=== PATIENT | male | born 1970 | race Caucasian/White ===

== ENCOUNTER 2020-04-25 18:41 | Observation (INO) | payer SELFPAY ==
[~2020-04-25] VITALS: Ht 182.9 cm; Wt 104.5 kg
--- NOTE | ~2020-04-25 | HEMODYNAMI ---
PATIENT:TERRI OSORIO MEDICAL RECORD: [id number] : 66 [facility]# [id number] ADMISSION DATE: 04/25/20 Generatedon:04/26/202011:17 Patient name: TERRI OSORIO Patient #: [id number] SSN: [id number] : 1970 Date of study: 04/26/2020 Page: Of Hemodynamic Procedure Report Patient Data Patient Demographics Procedure consent was obtained First Name: TERRI Gender: Male Last Name: JO : 1970 Middle Initial: M Age: 49 year(s) Patient #: [id number] Race: SSN: [id number] Additional ID: [id number] Contact details [address]: [address] [place] [address] State: [place] City: [place] Zip code: [address] Past Medical History Allergies Allergen Reaction Date Comments Reported Other allergy 04/26/2020 PCN, TETRACYCLINES, KEFLEX, ERYTHROCIN Admission Admission Data Admission Date: 04/25/2020 Admission Time: 19:35 Arrival Date: 04/26/2020 Arrival Time: 0:00 Admit Source: Other Insurance Payor: None Room #: D.2117 [facility] #: [id number] Height (in.): 72 BSA: 2.26 (m2) Height (cm.): 182.88 BMI: 31.19 (kg/m2) Weight (lbs.): 230 Weight (kg.): 104.33 Lab Results Lab Result Date: 04/26/2020 Lab Result Time: 0:00 Biochemistry Name Units Result Min Max BUN mg/dl 15 --(--*-)-- 7 18 Creatinine mg/dl 1.2 --(---*)-- 0.6 1.3 eGFR ml/min 67.69138 *-(----)-- 90 120 NONAFRICAN CBC Name Units Result Min Max Hematocrit % 45.2 --(-*--)-- 42 54 Hemoglobin g/dl 15.5 --(-*--)-- 13.5 17.5 Procedure Procedure Types Cath Procedure Diagnostic Procedure [facility] w/Coronaries Procedure Description Procedure Date Procedure Date: 04/26/2020 Procedure Start Time: 11:08 Procedure End Time: 11:15 Procedure Staff Name Function Jarrett Quezada MD Performing Physician Bridget Ortega RT Monitor Patricia Toro RT Scrub Elieen Gómez RN Nurse Alejandra Joseph RN Monitor Procedure Data Cath Procedure Fluoroscopy Diagnostic fluoroscopy Total fluoroscopy Time: 0.7 time: 0.7 min min Diagnostic fluoroscopy Total fluoroscopy dose: 336 dose: 336 mGy mGy Contrast Material Contrast Material Type Amount (ml) Isovue 370 33 Entry Location Entry Primary Successful Side Size Upsize Upsize Entry Closure Khan ccessful Closure Location (Fr) 1 (Fr) 2 (Fr) Remarks Device Remarks Radial Right 6 Fr Manual artery Short Compression Estimated blood loss: 5 ml Diagnostic catheters Device Type Used For End Catheter Placement DIAGNOSTIC [place] 110cm 5 Procedure Fr catheter ([id number]) Procedure Complications No complications Procedure Medications Medication Administration Route Dosage Radial Cocktail added to field 1 syringe (Verapamil 2mg/Nitro 400mcg/Heparin 1500units) 0.9% NaCl I.V. 100 ml/hr Oxygen NC 2 l/min Heparin Flush Bag added to field 2 bags (1000units/500ml NS) Versed I.V. 2 mg Fentanyl I.V. 100 mcg Versed I.V. 0.5 mg Hemodynamics Rest BSA: 2.26 (m2) HGB: 15.5 (g/dl) O2 Consumption: Estimated: 263.74 (ml/min) O2 Co nsumption indexed: Estimated:116.7 (ml/min/m) Heart Rate: 63 (bpm) Pressure Samples Time Site Value (mmHg) Purpose Heart Use Rate(bpm) 11:09 AO 116/16(30) Snapshot 64 11:09 LV 120/12,15 Snapshot 62 Snapshots Pre Cath Intra NCS Post Cath Vital Signs Time Heart Resp SPO2 etCO2 NIBP (mmHg) Rhythm Pain Sedation Rate (ipm) (%) (mmHg) Status Level (bpm) 10:35:31 56 117 98 36.1 174/98(150) NSR 0 (11) 10(A) , No pain 10:40:08 56 9 94 30.8 157/92(133) NSR 0 (11) 10(A) , No pain 10:44:46 60 19 96 36.1 155/84(111) NSR 0 (11) 10(A) , No pain 10:49:21 59 20 96 33.8 142/88(115) NSR 0 (11) 10(A) , No pain 10:53:49 60 19 96 34.6 148/95(125) NSR 0 (11) 10(A) , No pain 10:58:16 57 16 96 36.8 152/94(115) NSR 0 (11) 10(A) , No pain 11:02:52 57 17 95 36.8 151/83(115) NSR 0 (11) 10(A) , No pain 11:07:24 61 19 98 35.3 158/92(121) NSR 0 (11) 9(A) , No pain 11:11:59 66 21 93 32.3 152/91(111) NSR 0 (11) 9(A) , No pain Medications Time Medication Route Dose Verified Delivered Reason Notes Eff ectiveness by by 10:45:13 Radial Cocktail added 1 Jarrett Eileen used for (Verapamil to syringe Damien Rico procedure 2mg/Nitro field MD AVILA 400mcg/Heparin 1500units) 10:45:25 0.9% NaCl I.V. 100 Jarrett Eileen used for ml/hr Damien Rico procedure MD AVILA 10:45:34 Oxygen NC 2 l/min Jarrett Eileen for low Damien Rico 02 sats MD AVILA 10:45:44 Heparin Flush added 2 bags Jarrett Eileen used for Bag to Damien Rico procedure (1000units/500ml field ELIZABETH RN NS) 11:07:38 Versed I.V. 2 mg Jarrett Eileen for Damien Rico sedation MD AVILA 11:07:52 Fentanyl I.V. 100 mcg Jarrett Eileen for Damien Rico sedation MD AVILA 11:10:44 Versed I.V. 0.5 mg Jarrett Eileen for Damien Rico sedation MD AVILAforestry technical officer Log Time Note 9:41:54 Informed consent obtained and on chart 9:58:02 Lab Result : Hemoglobin 15.5 g/dl 9:58:02 Lab Result : eGFR NONAFRICAN 67.11874 ml/min 9:58:02 Lab Result : BUN 15 mg/dl 9:58:02 Lab Result : Creatinine 1.2 mg/dl 9:58:02 Lab Result : Hematocrit 45.2 % 9:58:05 Arrival Date: 04/26/2020 12:00:00 AM 9:58:05 Admit Source: Other 9:58:18 Patient Height : 72 inches 9:58:24 Patient Weight : 230 lbs 9:58:58 Insurance Payor : None 10:21:43 Procedure Status Elective Heart Cath (OP). 10:21:44 Time tracking: Regular hours (M-F 7:00 - 5:00) 10:21:46 Plan of Care:Hemodynamics will remain stable., Cardiac rhythm will remain stable., Comfort level will be maintained., Respiratory function will remain adequate., Patient/ family verbilizes understanding of procedure., Procedure tolerated without complication., Recovers from procedure without complications.. 10:21:48 Alejandra Joseph RN sent for patient. Start room use. 10:21:52 H&P Date Dictated: 04/26/2020 ER History on chart.. 10:26:09 Patient allergic to Other allergyPCN, TETRACYCLINES, KEFLEX, ERYTHROCIN 10:28:25 Patient received from Med II to CCL 1 Alert and oriented. Tansferred to table in Supine position. 10:28:26 Warm blankets applied, and samantha hugger turned on for patient comfort. 10:28:26 Correct patient and procedure confirmed by team. 10:28:26 ECG and BP/O2 sat monitors applied to patient. 10:33:55 Vital chart was started 10:33:56 Baseline sample Acquired. 10:33:59 Rhythm: sinus rhythm 10:34:01 Full Disclosure recording started 10:34:01 Pre-procedure instructions explained to patient. 10:34:01 Pre-op teaching completed and patient verbalized understanding. 10:34:03 Family in patients room. 10:34:04 Patient NPO since Midnight. 10:35:46 Is the patient allergic to Iodine/contrast media? No. 10:35:48 Is patient on blood thinner?No 10:35:58 Patient diabetic? No. 10:36:07 Previous problem with sedation/anesthesia? No ? 10:36:08 Snore? Yes 10:36:10 Sleep apnea? No 10:36:12 Deviated septum? No 10:36:14 Opens mouth fully? Yes 10:36:15 Sticks out tongue? Yes 10:36:17 Airway obstruction? No ? 10:36:18 Dentures? No ? 10:36:22 Pre procedure: right dorsailis pedis pulse 1+ Palpable, but thready & weak; easily obliterated 10:36:24 Modified Chad's test Ulnar < 7 seconds 10:36:26 Patient pain scale 0/10 ?. 10:36:30 IV patent on arrival in left hand with 0.9% NaCl at [facility]. 10:36:33 Lab results completed and on chart. 10:36:36 Right Radial & Right Groin area was prepped with chlora-prep and draped in sterile fashion 10:36:37 Alarms reviewed by R. N. 10:36:37 Sharps counted by scrub and verified by R.N. 10:36:41 Use device set Radial Dx or PCI 10:36:42 ACIST Syringe (01538) opened to sterile field. 10:36:44 Bag Decanter (2002S) opened to sterile field. 10:36:44 ACIST Hand Control (16331) opened to sterile field. 10:36:45 ACIST Manifold (09684) opened to sterile field. 10:36:45 Tegaderm 4 x 4 (1626W) opened to sterile field. 10:36:46 Medline Cath Pack ([id number]) opened to sterile field. 10:36:47 MBrace Wrist Support (602737052) opened to sterile field. 10:36:49 EMERALD Guide Wire (516-755) opened to sterile field. 10:36:51 SHEATH 6FR RAIN (7228697) opened to sterile field. 10:45:13 Radial Cocktail (Verapamil 2mg/Nitro 400mcg/Heparin 1500units) 1 syringe added to field was administered by Eileen Gómez RN; used for procedure; Verbal order read back and verified. 10:45:25 0.9% NaCl 100 ml/hr I.V. was administered by Eileen Gómez RN; used for procedure; Verbal order read back and verified. 10:45:34 Oxygen 2 l/min NC was administered by Eileen Gómez RN; for low 02 sats; Verbal order read back and verified. 10:45:44 Heparin Flush Bag (1000units/500ml NS) 2 bags added to field was administered by Eileen Gómez RN; used for procedure; Verbal order read back and verified. 10:51:46 Risk of Mortality: 0.1 10:51:48 Risk of blood transfusion: 0.1 10:51:51 Risk of KEENA: 0.6 11:07:38 Versed 2 mg I.V. was administered by Eileen Gómez RN; for sedation; Verbal order read back and verified. 11:07:39 --------ALL STOP TIME OUT------ 11:07:40 Final Timeout: patient, procedure, and site verified with staff and physician. All members of the team are in agreement. 11:07:42 Right Radial & Right Groin site verified by team. 11:07:46 Fire Safety Assessment: A--An alcohol-based skin anteseptic being used preoperatively., C--Open oxygen or nitrous oxide is being used., D--An ESU, laser, or fiber-optic light is being used. 11:07:50 Physical assessment completed. ASA score P 2 - A patient with mild systemic disease as per Jarrett Quezada MD. 11:07:52 Fentanyl 100 mcg I.V. was administered by Eileen Gómez RN; for sedation; Verbal order read back and verified. 11:07:53 1) 90+ Normal kidney functon but urine findings or structural abnormalities or genetic trait point to kidney disease. , 2) 60-89 Mildly reduced kidney function, and other findings (as for stage 1) point to kidney disease. 11:08:07 Maximum allowable contrast dose (3.7 X eGFR X 0.75)188 ml. 11:08:10 Sedation plan: IV Moderate Sedation Medication:Versed, Fentanyl 11:08:17 Procedure started. 11:08:31 Local anesthetic to right radial artery with Lidocaine 2% by Jarrett Quezada MD.INITIAL ACCESS ONLY 11:08:44 A 6 Fr Short sheath was inserted into the Right Radial artery 11::31 A DIAGNOSTIC [place] 110cm 5 Fr catheter ([id number]) was advanced over the wire and used for Procedure. 11:09:33 LV gram done using CASTREJON 11:09:45 EF : 55 % 11:09:46 LV hemodynamics recorded. 11:09:53 Injector settings: Ml/sec: 10, Volume: 20, 11:09:57 LCA angiography performed. 11:10:30 RCA angiography performed. 11:10:38 ACCDominant side:Right 11:10:44 Versed 0.5 mg I.V. was administered by Eileen Gómez RN; for sedation; Verbal order read back and verified. 11:10:49 Catheter removed. 11:11:16 ZEPHYR REGULAR TR BAND (534068) opened to sterile field. 11:11:32 Sheath removed intact; hemostasis achieved with Manual Compression to the Right Radial artery. 11:11:38 Procedure ended.(Physican Out) 11:12:30 Fluoroscopy time 00.70 minutes. 11:12:35 Fluoroscopy dose: 336 mGy 11:12:59 Flurop Dose total: 336 11:13:03 Dose Area Product 95991 mGy/cm. 11:13:13 Contrast amount:Isovue 370 33ml. 11:13:15 Maximum allowable dose exceeded? No. 11:13:17 Sharps counted by scrub and verified by R.N. 11:13:20 [place] band inflated with 10cc of air. 11:13:22 Insertion/operative site no bleeding no hematoma. 11:13:32 Post right radial artery:stable, soft, clean and dry 11:13:35 Post Procedure Pulses reassessed and unchanged 11:13:38 Post procedure: right radial pulse 1+ Palpable, but thready & weak; easily obliterated. 11:13:41 Post-procedure physical assessment completed. ASA score P 2 - A patient with mild systemic disease as per Jarrett Quezada MD. 11:13:43 Post procedure rhythm: unchanged. 11:13:46 Estimated blood loss: 5 ml 11:13:47 Post procedure instruction explained to patient.Patient verbalizes understanding. 11:13:47 Patient needs reinforcement of post procedure teaching. 11:14:57 Procedure and supply charges have been captured, reviewed, submitted and are correct. 11:15:01 Procedure Complication : No complications 11:15:10 Vital chart was stopped 11:15:11 [facility] Findings: mild to moderate CAD (<70%) 11:15:13 Operative report dictated upon procedure completion. 11:15:14 See physician's report for complete and final results. 11:15:17 Report given to Med II. 11:15:21 Patient transfered to Med II with Bed. 11:15:29 Procedure ended. 11:15:29 Full Disclosure recording stopped 11:15:42 End room use (Document Last) 11:16:10 End room use (Document Last) 11:16:38 End room use (Document Last) Device Usage Item Name Manufacture Quantity Catalog Hospital Part Current Minima l Lot# / Number Charge Number Stock Stock Serial# Code ACIST Acist 1 63859 395979 655860 161196 20 Syringe Medical (47240) Systems Inc Bag Microtek 1 683411 03492 347195 5 Decanter Medical Inc. () ACIST Hand Acist 1 03797 794742 866916 493150 5 Control Medical (19143) Systems Inc ACIST Acist 1 59686 693708 419496 376921 5 Manifold Medical (47192) Systems Inc Tegaderm 4 3M 1 1626W 406430 227786 350958 5 x 4 (1626W) Medline Medline 1 [id number] 53806 257317 5 Cath Pack ([id number]) MBrace Advanced 1 140-0250-00 992377 71531 438239 5 Wrist Vascular Support Dynamics (149757375) EMERALD Cardinal 1 502-455 765750 272526 001295 5 Guide Wire Health (502-455) SHEATH 6FR Cardinal 1 0893903 051210 6774457 082040 5 [facility] (7563380) DIAGNOSTIC Terumo 1 40-5013 792160 016827 621530 5 [place] 110cm 5 Fr catheter (220011) ZEPHYR Cardinal 1 561884 239518 2029642 787567 5 REGULAR TR Health BAND (215539) Signature Audit [place] Stage Time Signature Unsigned Intra-Procedure 04/26/2020 Alejandra Joseph 11:16:10 AM RN Intra-Procedure 04/26/2020 Eileen 11:16:39 AM Rico RN Intra-Procedure 04/26/2020 Jarrett Zapata 11:17:20 AM Kevin [facility] [address] [place] [address]
[2020-04-25] MEDS ORDERED: FLUTICASONE PRO16 GM NASAL (18:57)
[2020-04-25] MEDS ORDERED: CLARITIN 10 MG10 MG PO (18:57)
[2020-04-25 19:07] VITALS: BP 166/96
[2020-04-25 19:17] LABS: BASOPHILS 0.4 % (0-2); EOSINOPHILS 3.4 % (0-7); HEMATOCRIT 45.2 % (42.0-54.0); HEMOGLOBIN 15.5 g/dL (13.5-17.5); IMMATURE GRANULOCYTES 0.7 % (0-5); LYMPHOCYTES 26.4 % (15-50); MCH 30.5 pg (26.0-34.0); MCHC 34.3 g/dL (31.0-37.0); MCV 88.8 fL (80.0-100.0); MEAN PLATELET VOLUME 10.6 fL (7.4-10.4); MONOCYTES 8.1 % (2-11); PLATELET COUNT 223 10x3/uL (130-400); RBC 5.09 10x6/uL (4.20-6.10); RDW 12.3 % (11.5-14.5)
[2020-04-25 19:28] LABS: APTT 31.3 SECONDS (22.8-39.4); CALC OSMOLALITY 282 mosm/kg (275-300); CALCIUM 8.9 mg/dL (8.5-10.1); CARBON DIOXIDE 28.5 mmol/L (21.0-32.0); CHLORIDE - SERUM 107 mmol/L (98-107); CREATININE - SERUM 1.4 mg/dL (0.6-1.3); GLUCOSE 117 mg/dL (74-106); INR 1.09 (0.85-1.17); POTASSIUM - SERUM 4.1 mmol/L (3.5-5.1); SODIUM 141 mmol/L (136-145); UREA NITROGEN 15 mg/dL (7-18); eGFR NON AFRICAN AMERICAN 57 mL/min (90-120)
[2020-04-25 19:46] LABS: ALBUMIN 3.7 g/dL (3.4-5.0); ALKALINE PHOSPHATASE 89 U/L (30-120); ALT (SGPT) 42 U/L (10-68); BILIRUBIN - TOTAL 0.39 mg/dL (0.2-1.3); CREATINE KINASE 104 UL (21-232); MAGNESIUM - SERUM 1.9 mg/dL (1.8-2.4); PROTEIN - SERUM 7.1 g/dL (6.4-8.2); TROPONIN-I < 0.017 ng/mL (0.000-0.060)
[2020-04-25 20:50] VITALS: Ht 182.9 cm; Wt 104.5 kg
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
[2020-04-25 21:03] VITALS: BP 128/80
[2020-04-26 01:40] VITALS: BP 151/58
--- NOTE | 2020-04-26 05:55 | NUR ---
PT HAS RESTED THROUGH THE NIGHT. SR PER TELEMETRY. NO REPORTS OF PAIN OR DISCOMFORT. CPOC.
[2020-04-26 06:26] LABS: ANION GAP 11.3 mmol/L (8-16); CALCIUM 8.5 mg/dL (8.5-10.1); CREATININE - SERUM 1.2 mg/dL (0.6-1.3); POTASSIUM - SERUM 4.3 mmol/L (3.5-5.1); TROPONIN-I 0.028 ng/mL (0.000-0.060)
[2020-04-26 07:06] VITALS: BP 131/77
[2020-04-26 07:46] LABS: CHOL - HDL RATIO 3.6 ratio (2.3-4.9); LDL-HDL RATIO 2.1 ratio (1.5-3.5)
[2020-04-26 08:00] VITALS: BP 132/87
[2020-04-26 09:43] LABS: ALT (SGPT) 39 U/L (10-68)
[2020-04-26 10:06] LABS: BASOPHILS 0.9 % (0-2); EOSINOPHILS 4.3 % (0-7); HEMATOCRIT 42.4 % (42.0-54.0); HEMOGLOBIN 14.1 g/dL (13.5-17.5); LYMPHOCYTES 26.2 % (15-50); MCH 30.3 pg (26.0-34.0); MCHC 33.3 g/dL (31.0-37.0); MEAN PLATELET VOLUME 11.4 fL (7.4-10.4); MONOCYTES 11.3 % (2-11); NEUTROPHILS 56.3 % (40-80); PLATELET COUNT 222 10x3/uL (130-400); RBC 4.65 10x6/uL (4.20-6.10); RDW 12.6 % (11.5-14.5); WBC 6.9 10x3/uL (4.8-10.8)
[2020-04-26 10:08] LABS: MCV 91.2 fL (80.0-100.0)
--- NOTE | 2020-04-26 10:26 | NUR ---
PT TO OPERATING ROOM SCHEDULER.
[2020-04-26 11:00] VITALS: BP 144/94
--- NOTE | 2020-04-26 11:52 | NUR ---
RECEIVED PT BACK TO ROOM 2116. PT A/O X4, VITAL SIGNS STABLE, PLACED PT ON FREQUENT VITAL SIGNS. Z BAND TO RT WRIST, NO BLEEDING OR HEMATOMA NOTED.
--- NOTE | 2020-04-26 12:27 | NUR ---
NO CHANGES TO RT WRIST FROM PREVIOUS ASSESSMENT.
--- NOTE | 2020-04-26 13:35 | NUR ---
ATTEMPTED TO REMOVED 5CC OF AIR AND SITE STARTED BLEEDING. AIR PUT BACK IN. WILL TRY AGAIN IN 30MIN.
--- NOTE | 2020-04-26 14:03 | NUR ---
REMOVED 5CC OUT OF Z BAND, NO ACTIVE BLEEDING OR HEMATOMA AT THIS TIME.
[2020-04-26 15:00] VITALS: BP 138/81
--- NOTE | 2020-04-26 15:06 | NUR ---
Z BAND REMOVED AND 2X2, BAND AID PLACED ON WRIST. NO BLEEDING OR HEMATOMA NOTED.
[2020-04-26] MEDS ORDERED: METOPROLOL TART50 MG PO (16:52)
--- NOTE | 2020-04-26 17:46 | NUR ---
PROVIDED VERBAL AND WRITTEN DISCHARGE TEACHING TO PT WHO VERBALIZED UNDERSTANDING REGARDING TEACHING. D/C LT FA IV WITH CATHETER TIP INTACT. HEART MONITOR REMOVED AND TAKEN TO RECEIVING TELLER. PT LEFT UNIT VIA WHEELCHAIR, WITH ALL BELONGINGS, NAD NOTED.
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
--- NOTE | 2020-04-27 13:36 | OP ---
PATIENT NAME: TERRI OSORIO MEDICAL RECORD: [id number] :66 LOCATION:D.M2 D.2117 ADMISSION DATE:04/25/20 SURGEON: GURDEEP HUMPHREY MD DATE OF OPERATION: 04/26/2020 PROCEDURE: Left heart catheterization, selective angiography, right radial approach. CATHETERS: Radial sheath and [place] catheter. The procedure was well tolerated. The patient returned to the booker, sheath removed. TR band was placed. FINDINGS: Left ventriculography in 30-degree CASTREJON view: Normal wall motion and normal systolic function. CORONARY ANATOMY: LEFT MAIN: Left main is free of disease. LAD: Free of disease in the diagonal system. CIRCUMFLEX: Free of disease in the marginal system. RIGHT CORONARY ARTERY: Dominant artery, gives rise to PDA, free of disease. IMPRESSION: Normal LV systolic function. Normal coronary anatomy. TRANSINT:[id number] Voice Confirmation ID: [id number] DOCUMENT ID: [id number] GURDEEP HUMPHREY MD at 1336 CC: [id number] DICTATION DATE: 04/26/20 111 GAS APPLIANCE INSTALLER: 04/26/20 2139 DIS IN 04/26/20 [facility] [address] [place] [address]
--- NOTE | 2020-04-27 13:36 | CN ---
PATIENT NAME:TERRI OSORIO MEDICAL RECORD: [id number] : 66 LOCATION:D. D.2117 ADMIT DATE: 04/25/20 ACCOUNT: [id number] CONSULTING PHYSICIAN: GURDEEP HUMPHREY MD REFERRING PHYSICIAN: KAMI GUAJARDO MD DATE OF CONSULTATION: 04/26/2020 HISTORY OF PRESENT ILLNESS: A 49-year-old gentleman with a strong family history of coronary artery disease, history of dyslipidemia, has a longstanding history of SVT. No further cardiac workup. Just typically has short episode and has had a severe episode yesterday, accompanied by shortness of breath, anginal symptomology, radiation to the jaw and teeth as well as nausea, lasted about 20 minutes, converted in the ER. We were asked to see him concerning his cardiovascular status. PAST MEDICAL HISTORY: Includes history of SVT. ALLERGIES: PENICILLIN, TETRACYCLINE, KEFLEX. SOCIAL HISTORY: Works fulltime, nonsmoker. Easily takes care of all his ADLs. REVIEW OF SYSTEMS: The patient reports easy bruising but reports no swollen glands. The patient reports no fever, no night sweats, no significant weight gain, no significant weight loss. No significant exercise tolerance. The patient reports no dry eyes, no irritation, no vision change. Patient reports no difficulty hearing and no ear pain. Patient reports no frequent nose bleeds or nose and sinus problems. Patient reports on arm pain on exertion. No shortness of breath while lying down. No history of heart murmur. Patient reports no cough, no wheezing or coughing up blood. Patient reports no abdominal pain, no vomiting. Normal appetite. No diarrhea and not vomiting blood. No nausea and no constipation. Patient reports no incontinence. No difficulty urinating. No hematuria. No increased frequency. Patient reports no muscle aches. No weakness, no arthralgias, no back pain. No swelling of the extremities. Patient reports no abnormal mole, no jaundice, no rashes. Reports no loss of consciousness. No weakness and no numbness. No seizures, dizziness, or headaches. The patient reports no depression, no sleep disturbance, feeling safe in a relationship and no alcohol abuse. Patient reports on fatigue. Reports no runny nose or sinus pressure. No itching, no hives, and no frequent sneezing. PHYSICAL EXAMINATION: GENERAL: No acute distress, appears stated age. VITAL SIGNS: Blood pressure 131/77, pulse 64 and regular. HEENT: Normocephalic, atraumatic. NECK: No bruits noted. HEART: Regular. II/ systolic ejection murmur. LUNGS: Good air excursion. ABDOMEN: Soft, nontender. EXTREMITIES: Pulses 2+. No edema. DIAGNOSTIC DATA: EKG shows inferolateral ST-T changes. IMPRESSION: Acute coronary syndrome with SVT, multiple risk factors for coronary artery disease. CONSULT REPORT [id number] TERRI OSORIO PLAN: For angiography, intervention based on above. TRANSINT:[id number] Voice Confirmation ID: [id number] DOCUMENT ID: [id number] GURDEEP HUMPHREY MD at 1336 CC: [id number] DICTATION DATE: 04/26/20907 MILL MANAGER: 04/26/20 182 DIS IN 04/26/20 [address] [place] [address]
--- NOTE | 2020-04-27 13:36 | EC ---
PATIENT:TERRI OSORIO DATE OF SERVICE: 04/25/20 SEX: M MEDICAL RECORD: [id number] DATE OF : [birth year] LOCATION:D.M2 D.211 AGE OF PATIENT: 49 ADMISSION DATE: 04/25/20 REFERRING PHYSICIAN: INTERPRETING PHYSICIAN: GURDEEP HUMPHREY MD ECHOCARDIOGRAM REPORT ECHO CHARGES 4 ECHO COMPLETE Date: 04/26/20 CLINICAL DIAGNOSIS: EXERTIONAL DYSPNEA, EPISODE OF SVT ECHOCARDIOGRAPHIC MEASUREMENTS (adult normal given) AC root (d.<3.7cm) 3.2 cm LV Septum d (<1.2 cm> 1.0 cm Valve Excursion 1.7 cm LV Septum (systole) 1.3 cm Left Atria (s.<4.0cm> 2.9 cm LVPW d(<1.2cm) 0.9 cm RV (d.<2.3cm) 2.5 cm LVPW (sytole) 1.1 cm LV diastole(<5.6CM) 5.5 cm MV E-F(>70mm/sec) cm LV systole 4.1 cm LVOT Diameter 1.8 cm MV exc.(>10mm) cm Est.ejection fraction (50-75%) % DOPPLER: LVIT cm/sec A 62 cm/sec E 66 cm/sec LA cm/sec RVSP 18.2 mmHg LVOT 110 cm/sec AOP1/2T m/s Asc. Ao 123 cm/sec RVOT 57 cm/sec RA cm/sec PA 68 cm/sec AV Gradient Peak 6.1 mmHg AV Mean 3.6 mmHg AV Area 1.9 cm MV Gradient Peak 2.9 mmHg MV Mean 1.1 mmHg MV Area cm COMMENTS: Glass Scullion: Savanah POSADAS [employer] Installer: 3 Dr. Harvey TAPE# PACS Pericardial Effusion N DATE OF SERVICE: Adequate 2D, color flow imaging, spectral Doppler, and M-Mode. No LVH. LV internal dimension is normal. Wall motion is normal. EF is greater than or equal to 55%. Aortic valve is tricuspid. No evidence of stenosis by Doppler interrogation. Left atrium is normal. Mitral valve shows no prolapse. Trace MR. Right-sided chambers are grossly normal. Trace TR. TRANSINT:[id number] Voice Confirmation ID: [id number] DOCUMENT ID: [id number] ECHOCARDIOGRAM REPORT [id number] TERRI OSORIO GREGORY A MD at 1336 CC: [id number] DICTATION DATE: 04/26/20 1146 ENDOCRINOLOGY NURSE: 04/26/202056 DIS IN 04/26/20 [facility] [address] [place] [address]
== END 2020-04-26 17:47 | disposition home or self-care (01) ==
LOC: D.ER 18:41 → OBSVTIME 19:35 → D.M2 19:35
PROVIDERS: Family Medicine; Internal Medicine Interventional Cardiology; ADMIT Family Medicine; ATTEND Family Medicine
DX: I47.1 Supraventricular tachycardia (principal); R06.09 Other forms of dyspnea; R07.9 Chest pain, unspecified; N28.9 Disorder of kidney and ureter, unspecified; R53.83 Other fatigue